=== PATIENT | male | born 1995 | race Caucasian/White ===

== ENCOUNTER 2021-08-14 21:14 | Emergency (ER) | payer OTHER, SELFPAY ==
--- NOTE | ~2021-08-14 | CT_ITS ---
EXAMINATION: CT ANGIOGRAM OF THE CHEST WITH AND WITHOUT CONTRAST (CT PULMONARY ANGIOGRAM FOR PE) CLINICAL INFORMATION: Reason for Exam Left-sided chest pain with history of PE COMPARISON: Chest radiograph 08/14/2021. TECHNIQUE: Prior to contrast administration, noncontrast localization images were obtained. Subsequently, multidetector volumetric imaging was performed from the thoracic inlet to below the diaphragms following the administration of 80 mL Omnipaque 350 intravenous contrast. No contrast reaction reported Sagittal, coronal, and MIP oblique sagittal reformatted images were obtained on the CT workstation, uploaded to PACS, and reviewed. This CT examination was performed using dose optimization techniques as appropriate, variously including the following: *Automated exposure control *Adjustment of mA and/or kV according to patient size (this includes techniques or standardized protocols for targeted exams where dose is matched to indication/reason for exam; i.e. extremities or head) *Use of iterative reconstruction technique Total exam dose-length product 373 mGy-cm FINDINGS: QUALITY OF STUDY/CONTRAST BOLUS: Satisfactory. PULMONARY ARTERIES: No filling defects are noted within the visualized pulmonary arterial segments to suggest the presence of pulmonary emboli making allowances for motion artifact, particularly with reference to the right main pulmonary artery. The main and central pulmonary arteries are normal in caliber. THORACIC AORTA: No aneurysm or dissection. Lung and pleura: Lungs clear. Normal pattern of pulmonary vasculature. No pleural effusions or pneumothoraces. Mediastinum: Normal appearance of the visualized thyroid which is only partially included in the image [id number]. Minimal residual thymic tissue. No lymphadenopathy. Normal heart size. No pericardial thickening or pericardial fluid collections. CHEST WALL: No axillary lymphadenopathy. Incidentally visualized abdominal structures: The adrenal glands are partially included in the image [id number] and are normal in appearance. Osseous structures: Minimal multilevel anterior endplate osteophytosis of the thoracic spine. No acute appearing thoracic vertebral body compression deformities. Mild intervertebral disc space narrowing T11-T12. Minimal anterior wedge deformity of the T11 vertebral body which appears chronic. Mild anterior and plate osteophytosis of the superior and inferior endplates of T11. CT/CT angio chest PE protocol IMPRESSION: *CT pulmonary angiogram negative for pulmonary emboli. No acute cardiopulmonary abnormalities identified. Lungs clear. *Mild multilevel chronic spondylosis of the thoracic spine is detailed above. VTE: negative
--- NOTE | ~2021-08-14 | XR_ITS ---
EXAMINATION: XR CHEST CLINICAL INFORMATION: Back and chest pain. COMPARISON: None TECHNIQUE: Frontal view of the chest was obtained. FINDINGS: No significant abnormality is noted involving the heart, lungs, mediastinum, bony thorax or soft tissues. XR/XR chest 1V IMPRESSION: Unremarkable chest examination.
[2021-08-14 21:31] VITALS: BP 132/67; PULSE 78; RESP 16; TEMP 36.8; O2SAT 98; BMI 31.0
--- NOTE | 2021-08-14 21:39 | ECG_ITS ---
Test Reason : BACK PAIN Blood Pressure : / mmHG Vent. Rate : 077 BPM Atrial Rate : 077 BPM P-R Int : 122 ms QRS Dur : 092 ms QT Int : 368 ms P-R-T Axes : 055 046 032 degrees QTc Int : 416 ms Normal sinus rhythm Normal ECG No previous ECGs available Referred By: Generic ED Physician Electronically Signed By:JUSTIN DELACRUZ
[2021-08-14 21:55] LABS: MANUAL DIFF FLAG NO
[2021-08-14 21:58] LABS: Basophils Percent Auto 0.2 % (0-2); Eosinophils Absolute Auto 0.3 X10*3/uL (0.0-0.4); Eosinophils Percent Auto 2.7 % (0-4); Hematocrit 44.9 % (42.0-52.0); Imm Gran Abs Auto 0.02 X10*3/uL (0.00-0.03); Imm Gran Pct Auto 0.2 % (0.0-0.4); Lymphocytes Absolute Auto 2.7 X10*3/uL (1.2-4.9); Lymphocytes Percent Auto 23.9 % (20-40); Mean Corpuscular HGB Conc 33.4 g/dl (31.0-36.0); Mean Corpuscular Hemoglobin 29.3 pg (27.0-33.0); Mean Corpuscular Volume 87.7 fL (80.0-98.0); Mean Platelet Volume 9.5 fL (9.4-12.4); Monocytes Absolute Auto 1.2 X10*3/uL (0.1-1.2); Monocytes Percent Auto 10.6 % (2-11); Neutrophils Absolute Auto 6.9 x10*3/uL (2.0-8.3); Neutrophils Percent Auto 62.4 % (45-73); Platelet Count 249 X10*3/uL (160-400); Red Blood Count 5.12 X10*6/uL (4.60-5.80); Red Cell Distribution Width 13.3 % (11.0-16.0); White Blood Count 11.1 X10*3/uL (4.8-10.8)
[2021-08-14 22:05] LABS: Prothrombin Time 10.8 SEC (9.9-13.0)
[2021-08-14 22:13] LABS: Anion Gap 12 (12-20); Blood Urea Nitrogen 10 mg/dL (9-16); Calcium 9.5 mg/dL (8.4-10.2); Carbon Dioxide 28 mmol/L (22-29); Chloride 104 mmol/L (96-108); Creatinine Clr Calc Pharmacy 135.8; Estimated Glomerular Filt Rate > 60; Glucose Random 97 mg/dL (60-115); Potassium 4.2 mmol/L (3.3-5.1); Sodium 140 mmol/L (135-145)
--- NOTE | 2021-08-14 22:19 | ED.SOB ---
HPI - SOB/Dyspnea General Chief Complaint: Dyspnea Stated Complaint: mid back pain - hx of blood clots in lungs Time Seen by Provider: 08/14/21 22:05 Source: patient Mode of arrival: ambulatory Limitations: no limitations History of Present Illness HPI Narrative: Patient history of PE in 2019 treated with Eliquis for 6 months no history of DVT. Patient has been traveling a lot lately drove to [place] flew to [place] and [place] and and since yesterday complaining of shooting pain in the left lower chest posteriorly when taking a deep breath similar to that in the past no leg swelling no shortness of breath otherwise Related Data Home Medications Medication Instructions Recorded Confirmed dextroamphetamine-amphetamine 20 20 mg PO DAILY 08/14/21 08/14/21 mg tablet (Adderall) Allergies Allergy/AdvReac Type Severity Reaction Status Date / Time No Known Allergies Allergy Verified 08/14/21 21:55 Review of Systems Review of Systems: Yes all other systems are reviewed and are negative PMFSH Past Medical History Medical History ADHD Bilateral pulmonary embolism Social History Social History Advance Directives: No Advance Directives Information Provided: Yes Physical Exam Vital Signs: Vital Signs: Last Vital Signs Temp 98 F 08/14/21 22:37 Pulse 69 08/14/21 22:37 Resp 14 08/14/21 22:37 BP 113/57 L 08/14/21 22:37 Pulse Ox 97 08/14/21 22:37 BMI result Body Mass Index 31.0 Appearance: Alert. Oriented X3. No acute distress. CVS: Normal heart rate and rhythm. Pulses normal. Respiratory: No respiratory distress. Equal air entry bilateral, no wheezing/rales/rhonchi Abdomen: Soft and nontender. Bowel sounds are present, no mass palpable, no CVA tenderness Skin: Skin warm and dry. Normal skin color. Normal skin turgor. Extremities: No lower extremity edema. No calf tenderness Neuro: Oriented X 3. MDM - SOB/Dyspnea MDM Narrative Medical decision making narrative: Patient with pain in the left posterior chest possible he had PE , same in the past 2019 when he had pain will get D-dimer and plan for CTA chest if positive Patient asked for CTA chest, which is negative for PE will discharge patient home Lab Data Attestation: I reviewed the patient's lab results. Result diagrams: 08/14/21 21:51 08/14/21 21:51 Labs: Lab Results 08/14/21 08/14/21 08/14/21 Range/Units 21:51 21:51 21:51 WBC 11.1 H (4.8-10.8) X10*3/uL RBC 5.12 (4.60-5.80) X10*6/uL Hgb 15.0 (14.0-18.0) g/dl Hct 44.9 (42.0-52.0) % MCV 87.7 (80.0-98.0) fL MCH 29.3 (27.0-33.0) pg MCHC 33.4 (31.0-36.0) g/dl RDW 13.3 (11.0-16.0) % Plt Count 249 (160-400) X10*3/uL MPV 9.5 (9.4-12.4) fL Immature Gran % (Auto) 0.2 (0.0-0.4) % Neut % (Auto) 62.4 (45-73) % Lymph % (Auto) 23.9 (20-40) % Elbert % (Auto) 10.6 (2-11) % Eos % (Auto) 2.7 (0-4) % Baso % (Auto) 0.2 (0-2) % Lymph # (Auto) 2.7 (1.2-4.9) X10*3/uL Elbert # (Auto) 1.2 (0.1-1.2) X10*3/uL Eos # (Auto) 0.3 (0.0-0.4) X10*3/uL Baso # (Auto) 0.0 (0.0-0.2) X10*3/uL Abs Immat Gran (auto) 0.02 (0.00-0.03) X10*3/uL Absolute Neuts (auto) 6.9 (2.0-8.3) x10*3/uL Absolute Nucleated RBC 0.000 (0.0-0.012) X10*3/uL Nucleated RBC % (auto) 0.0 (0.0-0.2) /100WBC PT (9.9-13.0) SEC INR (0.9-1.1) D-Dimer High Sensitivty NG/ML Sodium 140 (135-145) mmol/L Potassium 4.2 (3.3-5.1) mmol/L Chloride 104 (96-108) mmol/L Carbon Dioxide 28 (22-29) mmol/L Anion Gap 12 (12-20) BUN 10 (9-16) mg/dL Creatinine 0.96 (0.5-1.4) mg/dL Estim Creat Clear Calc 135.8 Estimated GFR > 60 Random Glucose 97 (60-115) mg/dL Calcium 9.5 (8.4-10.2) mg/dL Troponin I High Sens < 3.5 (<3.5-35.0) ng/L 08/14/21 Range/Units 21:51 WBC (4.8-10.8) X10*3/uL RBC (4.60-5.80) X10*6/uL Hgb (14.0-18.0) g/dl Hct (42.0-52.0) % MCV (80.0-98.0) fL MCH (27.0-33.0) pg MCHC (31.0-36.0) g/dl RDW (11.0-16.0) % Plt Count (160-400) X10*3/uL MPV (9.4-12.4) fL Immature Gran % (Auto) (0.0-0.4) % Neut % (Auto) (45-73) % Lymph % (Auto) (20-40) % Elbert % (Auto) (2-11) % Eos % (Auto) (0-4) % Baso % (Auto) (0-2) % Lymph # (Auto) (1.2-4.9) X10*3/uL Elbert # (Auto) (0.1-1.2) X10*3/uL Eos # (Auto) (0.0-0.4) X10*3/uL Baso # (Auto) (0.0-0.2) X10*3/uL Abs Immat Gran (auto) (0.00-0.03) X10*3/uL Absolute Neuts (auto) (2.0-8.3) x10*3/uL Absolute Nucleated RBC (0.0-0.012) X10*3/uL Nucleated RBC % (auto) (0.0-0.2) /100WBC PT 10.8 (9.9-13.0) SEC INR 1.0 (0.9-1.1) D-Dimer High Sensitivty < 150 NG/ML Sodium (135-145) mmol/L Potassium (3.3-5.1) mmol/L Chloride (96-108) mmol/L Carbon Dioxide (22-29) mmol/L Anion Gap (12-20) BUN (9-16) mg/dL Creatinine (0.5-1.4) mg/dL Estim Creat Clear Calc Estimated GFR Random Glucose (60-115) mg/dL Calcium (8.4-10.2) mg/dL Troponin I High Sens (<3.5-35.0) ng/L Discharge Plan Discharge Clinical Impression: Muscle pain, myofascial Patient Disposition: Home, Self-Care Instructions: Musculoskeletal Pain (ED) Additional Instructions: Your CT scan is negative for blood clot Take ibuprofen for pain Prescriptions: No Action dextroamphetamine-amphetamine [Adderall] 20 mg Tablet 20 mg PO DAILY 0RF Rx Instructions: SR
[2021-08-14 22:20] LABS: Troponin-I High Sensitivity < 3.5 ng/L (<3.5-35.0)
[2021-08-14 22:37] VITALS: BP 113/57; PULSE 69; RESP 14; TEMP 36.6; O2SAT 97
[2021-08-14 22:37] LABS: D Dimer High Sensitivity < 150 NG/ML
[2021-08-14] MEDS: iohexoL 350 MG/ML 100 ML INFUS..BTL 65 ML IV (23:50)
== END 2021-08-15 00:52 | disposition home or self-care (01) ==
PROVIDERS: Emergency Provider Internal Medicine
DX: M79.18 Myalgia, other site (principal); Z86.711 Personal history of pulmonary embolism; Z79.01 Long term (current) use of anticoagulants
CPT/HCPCS: 36415; 71045; 71275; 80048; 84484; 85025; 85379; 85610; 93005; 99284; Q9967

== ENCOUNTER 2023-08-23 05:50 | Emergency (ER) | payer OTHER, SELFPAY ==
[2023-08-23 06:09] VITALS: BP 129/75; PULSE 75; RESP 18; TEMP 36.6; O2SAT 98; BMI 28.8
[2023-08-23 06:45] LABS: Basophils Percent Auto 0.4 % (0-2); Eosinophils Absolute Auto 0.1 X10*3/uL (0.0-0.4); Eosinophils Percent Auto 1.5 % (0-4); Hematocrit 46.8 % (42.0-52.0); Imm Gran Abs Auto 0.01 X10*3/uL (0.00-0.03); Imm Gran Pct Auto 0.1 % (0.0-0.4); Lymphocytes Absolute Auto 2.8 X10*3/uL (1.2-4.9); Lymphocytes Percent Auto 34.9 % (20-40); MANUAL DIFF FLAG NO; Mean Corpuscular HGB Conc 34.2 g/dl (31.0-36.0); Mean Corpuscular Hemoglobin 30.4 pg (27.0-33.0); Monocytes Absolute Auto 0.9 X10*3/uL (0.1-1.2); Monocytes Percent Auto 11.9 % (2-11); Neutrophils Percent Auto 51.2 % (45-73); Platelet Count 239 X10*3/uL (160-400); Red Blood Count 5.26 X10*6/uL (4.60-5.80); Red Cell Distribution Width 13.1 % (11.0-16.0); White Blood Count 7.9 X10*3/uL (4.8-10.8)
[2023-08-23] MEDS: 0.9 % Sodium Chloride 1,000 ML 999 ML IVCONT (06:48)
--- NOTE | 2023-08-23 06:50 | ED.NAVMDI ---
HPI - Nausea/Vomiting/Diarrhea General Chief complaint: Nausea/Vomiting/Diarrhea Stated complaint: n/d/v Time Seen by Provider: 08/23/23 06:31 Source: patient Mode of arrival: ambulatory Limitations: no limitations History of Present Illness HPI Narrative: 27-year-old male with history of alcohol abuse presents to the ER for evaluation of burning upper abdominal pain and diarrhea for the last 5 days. Patient states he has had up to 6 episodes of loose stools per day. He went to urgent care last week where he was prescribed omeprazole and famotidine with some improvement in the burning pains. He states he woke up last night around 03:00 with ongoing pain and had multiple bowel movements and 1 episode of vomiting prompting him to come to the ER for evaluation. He denies any blood in his stool. No recent antibiotic use. No recent travel. No fevers. No urinary symptoms. He endorses heavy alcohol use but not daily. MD elicited complaint: nausea, vomiting, diarrhea and abdominal pain Pertinent past history: alcohol abuse Onset (ago): day(s) (5) Description of vomiting: bilious Description of diarrhea: loose Associated nausea: Yes Associated abdominal pain: Yes Location of pain: epigastric Pain consistency: intermittent Severity: moderate Quality: other (Burning) Exacerbating factors: eating Relieving factors: medication Context: alcohol abuse Associated symptoms: loss of appetite Treatment prior to arrival: other OTC medicine Related Data Home Medications ?Medication ?Instructions ?Recorded ?Confirmed dextroamphetamine-amphetamine 20 20 mg PO DAILY 08/14/21 08/14/21 mg tablet (Adderall) Previous Rx's ?Medication ?Instructions ?Recorded omeprazole 40 mg capsule,delayed 40 mg PO DAILY #14 caps 08/23/23 release sucralfate 1 gram tablet (Carafate) 1 g PO BID #20 tabs 08/23/23 Allergies Allergy/AdvReac Type Severity Reaction Status Date / Time No Known Allergies Allergy Verified 08/23/23 06:12 Review of Systems Review of Systems: Yes all other systems are reviewed and are negative Gastrointestinal: Gastrointestinal: Reports nausea PMFSH Past Medical History Medical History ADHD Bilateral pulmonary embolism Social History Social History Advance Directives: No Advance Directives Information Provided: No Physical Exam Vital Signs: Vital Signs: Last Vital Signs Temp 97.3 F 08/23/23 09:21 Pulse 68 08/23/23 09:21 Resp 17 08/23/23 09:21 BP 146/70 H 08/23/23 09:21 Pulse Ox 99 08/23/23 09:21 O2 Del Method Room Air 08/23/23 07:40 BMI result Body Mass Index 28.8 Appearance: Alert. Oriented X3. No acute distress. Head: normocephalic, atraumatic. Eyes: Pupils equal, round and reactive to light. ENT: Pharynx normal. No tonsillar swelling or exudate. Neck: Normal inspection. Neck supple. CVS: Normal heart rate and rhythm. Pulses normal. Respiratory: No respiratory distress. Breath sounds normal. Abdomen: Soft with mild epigastric tenderness, no rebound or guarding, hyperactive +BS x4. negative murphys sign Skin: Skin warm and dry. Normal skin color. Normal skin turgor. No rashes. Extremities: No lower extremity edema. No joint swelling. Neuro/psych: Oriented X 3. No motor deficit. No sensory deficit. CN II-XII intact. Normal speech and cognition. Medications Administered Discontinued Medications Generic Name Dose Route Start Last Admin Trade Name Freq PRN Reason Stop Dose Admin Al Hydroxide/Mg Hydroxide 30 ml 08/23/23 08:33 08/23/23 08:44 Magnesium Hydrox/Alum Hydrox 30 Ml Oral.Susp PO 08/23/23 08:34 30 ml ONCE ONE Administration Famotidine 20 mg 08/23/23 06:52 08/23/23 07:07 Famotidine/Pf 20 Mg/2 Ml Vial IVPUSH 08/23/23 06:53 20 mg ONCE ONE Administration Sodium Chloride 1,000 mls @ 999 mls/hr 08/23/23 06:45 08/23/23 06:48 Ns IVCONT 08/23/23 07:45 999 mls/hr .Q1H1M JACOB Administration Omeprazole 40 mg 08/23/23 08:33 08/23/23 08:44 Omeprazole 40 Mg Capsule.Dr PO 08/23/23 08:34 40 mg ONCE ONE Administration Ondansetron HCl 4 mg 08/23/23 06:52 08/23/23 07:09 Ondansetron Hcl 4 Mg/2 Ml Vial IVPUSH 08/23/23 06:53 4 mg ONCE ONE Administration Medical Decision Making Medical Decision Making [facility] Narrative: 27-year-old male presents to the ER for evaluation of epigastric burning abdominal pain along with loose stools for the last 5 days. He endorses heavy alcohol use. Did have some brief improvement with omeprazole and famotidine. Possible alcoholic gastritis, will need to rule out alcoholic pancreatitis as well. Labs ordered. Patient given IV fluids, Zofran and Pepcid. labs reassuring. no BM while here. pain improved w/ po meds on re-evaluation. given ETOH history, most likley gastritis vs PUD. pain is worse with food. admits to poor diet. will plan to increase PPI, add carafate. diet modifications. refer to GI if symptoms ongoing stable for d/c home. Differential Diagnosis Differential Diagnoses: The differential diagnosis associated with the presentation includes gastritis, PUD, h. pylori, GERD, pancreatitis, cholecystitis Admission/Observation Consideration of admission/observation: Escalation of care including admission/observation considered Lab Data [facility] Lab Attestation statement: I reviewed the patient's lab results. No leukocytosis, no anemia 08/23/23 06:40 08/23/23 06:40 Labs: Lab Results 08/23/23 Range/Units 06:40 WBC 7.9 (4.8-10.8) X10*3/uL RBC 5.26 (4.60-5.80) X10*6/uL Hgb 16.0 (14.0-18.0) g/dl Hct 46.8 (42.0-52.0) % MCV 89.0 (80.0-98.0) fL MCH 30.4 (27.0-33.0) pg MCHC 34.2 (31.0-36.0) g/dl RDW 13.1 (11.0-16.0) % Plt Count 239 (160-400) X10*3/uL MPV 10.0 (9.4-12.4) fL Immature Gran % (Auto) 0.1 (0.0-0.4) % Neut % (Auto) 51.2 (45-73) % Lymph % (Auto) 34.9 (20-40) % Rogers % (Auto) 11.9 H (2-11) % Eos % (Auto) 1.5 (0-4) % Baso % (Auto) 0.4 (0-2) % Lymph # (Auto) 2.8 (1.2-4.9) X10*3/uL Rogers # (Auto) 0.9 (0.1-1.2) X10*3/uL Eos # (Auto) 0.1 (0.0-0.4) X10*3/uL Baso # (Auto) 0.0 (0.0-0.2) X10*3/uL Abs Immat Gran (auto) 0.01 (0.00-0.03) X10*3/uL Absolute Neuts (auto) 4.0 (2.0-8.3) x10*3/uL Absolute Nucleated RBC 0.000 (0.0-0.012) X10*3/uL Nucleated RBC % (auto) 0.0 (0.0-0.2) /100WBC Sodium 141 (135-145) mmol/L Potassium 4.6 (3.3-5.1) mmol/L Chloride 107 (96-108) mmol/L Carbon Dioxide 24 (22-29) mmol/L Anion Gap 15 (12-20) BUN 10 (9-16) mg/dL Creatinine 1.05 (0.5-1.4) mg/dL Estim Creat Clear Calc 117.8 Estimated GFR > 60 Random Glucose 98 (60-115) mg/dL Calcium 9.4 (8.4-10.2) mg/dL Total Bilirubin 0.7 (0.0-1.0) mg/dL AST 21 (5-37) U/L ALT 22 (0-40) U/L Alkaline Phosphatase 69 (39-117) U/L Total Protein 7.8 (6.5-8.0) g/dL Albumin 4.4 (3.5-5.0) g/dL Lipase 29 (8-78) U/L External Record Review External record reviewed: Outpatient record and Prior outpatient labs Tests considered The following testing was considered but not selected: CT of the abdomen was considered however his abdominal exam was benign Prescription Management I considered prescription management with: Pain Medication Discharge Plan Discharge Clinical Impression: Gastritis Patient Disposition: Home, Self-Care Instructions: Gastritis (DC), Diet for Stomach Ulcers and Gastritis (ED) Additional Instructions: Your lab workup today was unremarkable. Your pain is most likely due to gastritis which is and irritation and inflammation of your stomach lining. Start taking the prescribed medication as directed for this. Stick to a bland diet. Avoid foods high in acid, avoid alcohol and NSAID medications like Aleve, Motrin, Advil or ibuprofen. Follow up with your doctor as needed. Follow up with GI doctor if you symptoms persist despite dietary modifications and medication. If you develop new or worsening symptoms call 911 or come back to the ER for further evaluation. Prescriptions: New omeprazole 40 mg capsule,delayed release(DR/EC) 40 mg PO DAILY Qty: 14 0RF sucralfate [Carafate] 1 gram tablet 1 g PO BID Qty: 20 0RF No Action dextroamphetamine-amphetamine [Adderall] 20 mg Tablet 20 mg PO DAILY Rx Instructions: SR Referrals: [facility] [place] Gastroenterology Services [Provider Group] (gastritis vs PUD) Stand Alone Forms: Work/School Release Interventions: ED Discharge Assessment Last Done: 08/23/23 09:21 Discharge Date/Time: 08/23/23 09:22 Print Language: Turkmen
[2023-08-23 07:02] LABS: Alanine Aminotransferase 22 U/L (0-40); Albumin Level 4.4 g/dL (3.5-5.0); Alkaline Phosphatase 69 U/L (39-117); Anion Gap 15 (12-20); Aspartate Amino Transferase 21 U/L (5-37); Bilirubin Total 0.7 mg/dL (0.0-1.0); Blood Urea Nitrogen 10 mg/dL (9-16); Calcium 9.4 mg/dL (8.4-10.2); Carbon Dioxide 24 mmol/L (22-29); Chloride 107 mmol/L (96-108); Creatinine Clr Calc Pharmacy 117.8; Estimated Glomerular Filt Rate > 60; Glucose Random 98 mg/dL (60-115); Lipase 29 U/L (8-78); Potassium 4.6 mmol/L (3.3-5.1); Sodium 141 mmol/L (135-145); Total Protein 7.8 g/dL (6.5-8.0)
[2023-08-23] MEDS: Famotidine/PF 20 MG/2 ML VIAL IVPUSH (07:07)
[2023-08-23] MEDS: ondansetron HCL 4 MG/2 ML VIAL IVPUSH (07:09)
[2023-08-23 07:40] VITALS: BP 131/79; PULSE 63; RESP 18; TEMP 36.3; O2SAT 99
[2023-08-23] MEDS: Omeprazole 40 MG CAPSULE.DR PO (08:44)
[2023-08-23] MEDS: Magnesium Hydrox/Alum Hydrox 30 ML ORAL.SUSP PO (08:44)
[2023-08-23 08:45] VITALS: BP 146/70; PULSE 68; RESP 17; O2SAT 99
[2023-08-23 09:21] VITALS: BP 146/70; PULSE 68; RESP 17; TEMP 36.3; O2SAT 99
== END 2023-08-23 09:22 | disposition home or self-care (01) ==
PROVIDERS: Emergency Provider Emergency Medicine
DX: K29.70 Gastritis, unspecified, without bleeding (principal); F10.10 Alcohol abuse, uncomplicated
CPT/HCPCS: 36415; 80053; 83690; 85025; 96374; 96375; 99284; J2405